=== PATIENT | female | born 1955 | race Caucasian/White ===

== ENCOUNTER 2021-03-31 10:12 | Outpatient (CLI) | payer MEDICARE, SELFPAY ==
--- NOTE | ~2021-03-31 | MM_ITS ---
EXAMINATION: MM screening allan BI w nima HISTORY: Screening mammogram TECHNIQUE: Craniocaudal and mediolateral oblique 3-D tomosynthesis images were obtained and synthetic 2-D images were generated. CAD analysis was submitted and interpreted. COMPARISON: 12/28/2018 diagnostic right mammogram and limited right breast ultrasound 09/15/2018, 06/06/2017 bilateral digital screening mammogram examinations BREAST PARENCHYMAL COMPOSITION: There are scattered areas of fibroglandular density. FINDINGS: There are bilateral benign-appearing intramammary lymph nodes. Occasional benign calcifications are noted. There is no evidence of suspicious mass, calcification, o r architectural distortion to suggest malignancy in either breast. There has been no suspicious inter francisco change. IMPRESSION: 1. No mammographic evidence of malignancy. 2. Recommend routine screening mammography in one year. BI-RADS Category 2: Benign finding(s). Reviewed, dictated and finalized at location A.
== END 2021-03-31 10:13 | disposition home or self-care (01) ==
LOC: ANHIMG 10:17
PROVIDERS: PCP Family Medicine; Visit Provider Nurse Practitioner Obstetrics & Gynecology
DX: Z12.31 Encounter for screening mammogram for malignant neoplasm of breast (principal)
CPT/HCPCS: 77063; 77067

== ENCOUNTER 2023-02-28 13:40 | Outpatient (CLI) | payer MEDICARE, SELFPAY ==
--- NOTE | ~2023-02-28 | MM_ITS ---
EXAMINATION: MM screening allan BI w nima HISTORY: Screening mammogram TECHNIQUE: Craniocaudal and mediolateral oblique 3-D tomosynthesis images were obtained and synthetic 2-D images were generated. CAD analysis was submitted and interpreted. COMPARISON: 03/31/2021 bilateral screening mammogram 12/28/2018 diagnostic right mammogram and limited right breast ultrasound, reported negative 4. 18 bilateral screening mammogram BREAST PARENCHYMAL COMPOSITION: There are scattered areas of fibroglandular density. FINDINGS: Bilateral axillary tail small probable lymph nodes. There is no evidence of suspicious mass , calcification, or architectural distortion to suggest malignancy in either breast. There has been n o suspicious interval change. IMPRESSION: 1. No mammographic evidence of malignancy. 2. Recommend routine screening mammography in one year. BI-RADS Category 2: Benign finding(s). Reviewed, dictated and finalized at location A.
== END 2023-02-28 13:41 | disposition home or self-care (01) ==
LOC: ANHIMG 13:45
PROVIDERS: PCP Family Medicine; Visit Provider Nurse Practitioner Obstetrics & Gynecology
DX: Z12.31 Encounter for screening mammogram for malignant neoplasm of breast (principal)
CPT/HCPCS: 77063; 77067

== ENCOUNTER 2024-08-27 14:49 | Outpatient (CLI) | payer MEDICARE, SELFPAY ==
--- NOTE | ~2024-08-27 | MM_ITS ---
EXAMINATION: MM screening allan BI w nima HISTORY: Screening TECHNIQUE: Craniocaudal and mediolateral oblique 3-D tomosynthesis images were obtained and synthetic 2-D images were generated. CAD analysis was submitted and interpreted. COMPARISON: Comparison to multiple prior studies sequentially, with oldest reviewed study dated 05/17. BREAST PARENCHYMAL COMPOSITION: Not dense: There are scattered areas of fibroglandular density. FINDINGS: There is no evidence of suspicious mass, calcification, or architectural distortion to sugg est malignancy in either breast. There has been no suspicious interval change. IMPRESSION: 1. No mammographic evidence of malignancy. 2. Recommend routine screening mammography in one year. BI-RADS Category 1: Negative Reviewed, dictated and finalized at location []
--- OUTSIDE RECORDS SUMMARY | 2024-08-27 14:54 | XMS_ITS | Encounter Summary ---
Author Organization [facility] Facility Care Team Providers Care Cook Frozen Dessert Name Role Phone Zhen Galan MD Primary Care Provider [phone] Tadeo Hansen MD Unavailable [phone] Zhen Galan MD Primary Care Provider [phone] Asha Russo MD Unavailable Encounter Details Date Type Department Care Team (Latest Contact Info) Description 11/17/2015 Orders Only MMG CLINCONV ProviderAmina MD [address] [place] [address] Social History Tobacco Use Types Packs/Day Years Used Date Smoking Tobacco: Never Assessed Comments Unknown Sex and Gender Information Value Date Recorded Sex Assigned at Not on file 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 us Historical Provider Final Res ult documented in this encounter Visit Diagnoses Not on filedocumented in this encounter Additional Health Concerns Infection Onset Date Last Indicated Resolved Time Exposure, COVID-19 Comment:Added automatically based on COVID19 lab answers indicating exposure risk 01/17/2022 01/17/2022 01/18/2022 10:09 AM CDT COVID: Suspected 01/17/2022 01/17/2022 01/18/2022 3:05 AM CDT COVID: Suspected 01/17/2022 01/17/2022 01/18/2022 10:09 AM CDT COVID19 01/17/2022 01/17/2022 01/27/2022 3:07 AM CDT COVID: Recovered Comment:Added based on recent COVID infection. 01/27/2022 02/20/2022 05/27/2022 3:[address] documented as of this encounter Care Teams Cook Frozen Dessert Relationship Specialty Start Date End Date Zhen Galan MD PCP - General 11/19/16 03/11/22 Zhen Galan MD PCP - General Family Medicine 03/12/22 Tadeo Hansen MD Consulting Physician Plastic Surgery 10/30/21 Asha Russo MD [address] [facility] [address] Consulting Physician Pain Management 11/05/22 documented as of this encounter
--- OUTSIDE RECORDS SUMMARY | 2024-08-27 14:54 | XMS_ITS | Encounter Summary ---
Author Organization [facility] Address [address] [place] [address] Care Team Providers Care Automotive Accessory Installer Name Role Phone Zhen Galan MD Primary Care Provider [phone] Bhupendra Combs MD Unavailable Encounter Details Date Type Department Care Team (Late st Contact Info) Description 09/01/2018 Abstract [facility] at [facility], [address] [address] Tatyana Lara MA Social History Tobacco Use Types Packs/Day Years Used Date Smoking Tobacco: Former Smokeless Tobacco: Never Alcohol Use Standard Drinks/Week Comments No 0 (1 standard drink = 0.6 oz pur e alcohol) AUDIT-C Answer Date Recorded Frequency of Alcohol Consumption Never 08/31/2018 Average Number of Drinks Not on file 019 Frequency of Binge Drinking Not on file 08/14 Comments Unknown Sex and Gender Information Value Date Recorded Sex Assigned at Female 09/25/2018 9:29 AM CDT Legal Sex Female 8:34 PM CDT Gender Identity Female 09/25/2018 9:29 AM CDT Sexual Orientation Straight 09/25/2018 9: 29 AM CDT Occupation Industry Job Start Date Job End Date Not on file Not on file Not on file Not on file documented as of this encounter Plan of Treatment Not on file documented as of this encounter Procedures Procedure Name Priority Date/Time Associated Diagnosis Comments PROTIME (OUTSIDE LAB) Routine 09/22/2018 PROTIME (OUTSIDE LAB) Routine 09/22/2018 CBC (OUTSIDE LAB) Routine 09/22/2018 BASIC METABOLIC PANEL Routine 09/22/2018 LIPID PANEL Routine 09/22/2018 CREATININE Routine 09/17/2018 BNP Routine 08/26/2018 CBC (OUTSIDE LAB) Routine 07/29/2018 COMPREHENSIVE METABOLIC PANEL Routine 07/29/2018 documented in this encounter Results * PROTIME (OUTSIDE LAB) (09/22/2018) 09/22/2018 us Doc [facility] Abstract LAB-OUTSIDE/ABSTRACTED Final Result * CBC (OUTSIDE LAB) (09/22/2018) WBC 5.2 HGB 12.8 HCT 39.3 PLT 221 09/22/2018 us Doc [facility] Abstract LAB-OUTSIDE/ABSTRACTED Edite d Result - Final * BASIC METABOLIC PANEL (09/22/2018) SODIUM S/P/B 132 POTASSIUM S/P/B 4.6 CO2 29 CHLORIDE S/P/B 98 GLUCOSE 106 mg/dL CALCIUM S/P/B 9.4 BUN 7 CREATININE S/P/B 0.92 0.5 - 1.0 EGFR AFR. AMER. 76 <=90 EGFR NON-AFR. AMER. 65 <=90 09/22/2018 us Doc [facility] Abstract LABORATORY Edited Resul t - Final * LIPID PANEL (09/22/2018) CHOLESTEROL 209 HDL 54 TRIGLYCERIDES 118 NON HDL CHOLESTEROL 155 LDL (CALCULATED) 132 09/22/2018 us Doc [facility] Abstract LABORATORY Edited Resul t - Final * PROTIME (OUTSIDE LAB) (09/22/2018) Pathologist [facility] PROTIME 9.8 INR 1.0 09/22/2018 us Doc [facility] Abstract LAB-OUTSIDE/ABSTRACTED Final Result * CREATININE (09/17/2018) Pathologist [facility] CREATININE S/P/B 0.80 0.5 - 1.0 EGFR NON-AFR. AMER. 77 <=90 EGFR AFR. AMER. 90 <=90 09/17/2018 us Doc [facility] Abstract LABORATORY Final Result * BNP (08/26/2018) Pathologist [facility] B TYPE NATRIURETIC PEPTIDE 35 08/26/2018 us Doc [facility] Abstract LABORATORY Final Result * CBC (OUTSIDE LAB) (07/29/2018) Pathologist [facility] WBC 5.3 HGB 13.2 HCT 40.7 PLT 238 07/29/2018 us Doc [facility] Abstract LAB-OUTSIDE/ABSTRACTED Edite d Result - Final * COMPREHENSIVE METABOLIC PANEL (07/29/2018) Pathologist [facility] SODIUM S/P/B 133 POTASSIUM S/P/B 4.6 CO2 31 CHLORIDE S/P/B 98 GLUCOSE 100 mg/dL CALCIUM S/P/B 9.7 BUN 7 CREATININE S/P/B 0.81 0.5 - 1.0 EGFR AFR. AMER. 88 <=90 EGFR NON-AFR. AMER. 76 <=90 ALKALINE PHOSPHATASE S/P/B 122 ALT 13 AST 21 BILIRUBIN TOTAL S/P/B 0.9 ALBUMIN S/P/B 4.1 3.5 - 5.0 TOTAL PROTEIN S/P/B 7.0 GLOBULIN 2.9 07/29/2018 us Doc [facility] Abstract LABORATORY Edited Resul t - Final documented in this encounter Visit Diagnoses Not on filedocumented in this encounter Care Teams Automotive Accessory Installer Relationship Specialty Start Date End Date Zhen Galan MD PCP - General FAMILY PRACTICE 08/17/18 Bhupendra Combs MD [facility]. [facility] [address] [place] [address] [place] Clinical Educator INTERVENTIONAL CARDIOLOGY 08/20/18 documented as of this encounter
--- OUTSIDE RECORDS SUMMARY | 2024-08-27 14:54 | XMS_ITS | Encounter Summary ---
Author Organization [facility] Facility Care Team Providers Care Passenger Solicitor Name Role Phone Zhen Galan MD Primary Care Provider [phone] Tadeo Hansen MD Unavailable [phone] Zhen Galan MD Primary Care Provider [phone] Asha Russo MD Unavailable Encounter Details Date Type Department Care Team (Latest Contact Info) Description 10/31/2015 Orders Only MMG CLINCONV ProviderAmina MD [address] [place] [address] Social History Tobacco Use Types Packs/Day Years Used Date Smoking Tobacco: Never Assessed Comments Unknown Sex and Gender Information Value Date Recorded Sex Assigned at Not on file 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 Historical Provider [facility] HELADIO BRISENO Final Result documented in this encounter Visit Diagnoses Not [...] documented as of this encounter Care Teams Passenger Solicitor Relationship Specialty Start Date End Date Zhen Galan MD PCP - General 11/19/16 03/11/22 Zhen Galan MD PCP - General Family Medicine 03/12/22 Tadeo Hansen MD Consulting Physician Plastic Surgery 10/30/21 Asha Russo MD [address] [facility] [address] Consulting Physician Pain Management 11/05/22 documented as of this encounter
--- OUTSIDE RECORDS SUMMARY | 2024-08-27 14:55 | XMS_ITS | Encounter Summary ---
Author Organization [facility] Facility Care Team Providers Care Assistant Health Educator Name Role Phone Zhen Galan MD Primary Care Provider [phone] Tadeo Hansen MD Unavailable [phone] Zhen Galan MD Primary Care Provider [phone] Asha Russo MD Unavailable Encounter Details Date Type Department Care Team (Latest Contact Info) Description 03/07/2016 Orders Only MMG CLINCONV ProviderAmina MD [address] [place] [address] Social History Tobacco Use Types Packs/Day Years Used Date Smoking Tobacco: Never Assessed Comments Unknown Sex and Gender Information Value Date Recorded Sex Assigned at Not on file 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 Historical Provider Final Res ult * COLONOSCOPY - SCAN (03/07/2016 12:00 AM CDT) Narrative 03/07/2016 12:00 AM CDT Ordered by an unspecified [...] documented as of this encounter Care Teams Assistant Health Educator Relationship Specialty Start Date End Date Zhen Galan MD PCP - General 11/19/16 03/11/22 Zhen Galan MD PCP - General Family Medicine 03/12/22 Tadeo Hansen MD Consulting Physician Plastic Surgery 10/30/21 Asha Russo MD [address] [facility] [address] Consulting Physician Pain Management 11/05/22 documented as of this encounter
--- OUTSIDE RECORDS SUMMARY | 2024-08-27 14:55 | XMS_ITS | Encounter Summary ---
Author Organization [facility] Facility Care Team Providers Care Electronics Supervisor Name Role Phone Zhen Galan MD Primary Care Provider [phone] Tadeo Hansen MD Unavailable [phone] Zhen Galan MD Primary Care Provider [phone] Asha Russo MD Unavailable Encounter Details Date Type Department Care Team (Latest Contact Info) Description 09/01/2018 Orders Only MMG CLINCONV ProviderAmina MD [address] [place] [address] Social History Tobacco Use Types Packs/Day Years Used Date Smoking Tobacco: Every Day Comments Unknown Sex and Gender Information Value Date Recorded Sex Assigned at Not on file Legal Sex Female 3:[address] TH[address] ORDER TAKER Gender Identity Not on file Sexual Orientation Not on file documented as of this encounter Plan of Treatment Not on file documented as of this encounter Procedures Procedure Name Priority Date/Time Associated Diagnosis Comments CARDIOLOGY REPORT 09/08/2018 12: 00 AM CDT documented in this encounter Results * CARDIOLOGY REPORT (09/08/2018 12:00 AM CDT) Anatomical Region Laterality Modality Other Narrative 09/08/2018 12:00 AM CDT Ordered by an unspecified [...] documented as of this encounter Care Teams Electronics Supervisor Relationship Specialty Start Date End Date Zhen Galan MD PCP - General 11/19/16 03/11/22 Zhen Galan MD PCP - General Family Medicine 03/12/22 Tadeo Hansen MD Consulting Physician Plastic Surgery 10/30/21 Asha Russo MD [address] [facility] [address] Consulting Physician Pain Management 11/05/22 documented as of this encounter
--- OUTSIDE RECORDS SUMMARY | 2024-08-27 14:55 | XMS_ITS | Encounter Summary ---
Author Organization [facility] Facility Care Team Providers Care Stone Fabricator Name Role Phone Zhen Galan MD Primary Care Provider [phone] Tadeo Hansen MD Unavailable [phone] Zhen Galan MD Primary Care Provider [phone] Asha Russo MD Unavailable Encounter Details Date Type Department Care Team (Latest Contact Info) Description 11/12/2016 Orders Only MMG CLINCONV ProviderAmina MD [address] [place] [address] Social History Tobacco Use Types Packs/Day Years Used Date Smoking Tobacco: Never Assessed Comments Unknown Sex and Gender Information Value Date Recorded Sex Assigned at Not on file 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 Gender Identity Not on file Sexual Orientation Not on file documented as of this encounter Plan of Treatment Not on file documented as of this encounter Procedures Procedure Name Priority Date/Time Associated Diagnosis Comments SCAN - LABS 12/02/2016 12:00 AM CDT documented in this encounter Results * SCAN - LABS (12/02/2016 12:00 AM CDT) Narrative 12/02/2016 12:00 AM CDT Ordered by an unspecified [...] documented as of this encounter Care Teams Stone Fabricator Relationship Specialty Start Date End Date Zhen Galan MD PCP - General 11/19/16 03/11/22 Zhen Galan MD PCP - General Family Medicine 03/12/22 Tadeo Hansen MD Consulting Physician Plastic Surgery 10/30/21 Asha Russo MD [address] [facility] [address] Consulting Physician Pain Management 11/05/22 documented as of this encounter
--- OUTSIDE RECORDS SUMMARY | 2024-08-27 14:55 | XMS_ITS | Encounter Summary ---
Author Organization [facility] Facility Care Team Providers Care Shearing Machine Operator Name Role Phone Zhen Galan MD Primary Care Provider [phone] Tadeo Hansen MD Unavailable [phone] Zhen Galan MD Primary Care Provider [phone] Asha Russo MD Unavailable Encounter Details Date Type Department Care Team (Latest Contact Info) Description 02/25/2018 Orders Only MMG CLINCONV ProviderAmina MD [address] [place] [address] Social History Tobacco Use Types Packs/Day Years Used Date Smoking Tobacco: Every Day Comments Unknown Sex and Gender Information Value Date Recorded Sex Assigned at Not on file 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 Gender Identity Not on file Sexual Orientation Not on file documented as of this encounter Plan of Treatment Not on file documented as of this encounter Procedures Procedure Name Priority Date/Time Associated Diagnosis Comments PROCEDURE - RESULT 04/01/2018 12 :00 AM CDT documented in this encounter Results * PROCEDURE - RESULT (04/01/2018 12:00 AM CDT) Narrative 04/01/2018 12:00 AM CDT Ordered by an unspecified [...] documented as of this encounter Care Teams Shearing Machine Operator Relationship Specialty Start Date End Date Zhen Galan MD PCP - General 11/19/16 03/11/22 Zhen Galan MD PCP - General Family Medicine 03/12/22 Tadeo Hansen MD Consulting Physician Plastic Surgery 10/30/21 Asha Russo MD [address] [facility] [address] Consulting Physician Pain Management 11/05/22 documented as of this encounter
--- OUTSIDE RECORDS SUMMARY | 2024-08-27 14:55 | XMS_ITS | Referral Summary ---
Author Organization [facility] Address [address] [place] [address] Care Team Providers Care Escalator Installer Name Role Phone Tadeo Hansen MD Unavailable [phone] Zhen Galan MD Primary Care Provider [phone] Asha Russo MD Unavailable Allergies Active Allergy Reactions Criticality Noted Date Comments Amlodipine Shortness of breath High 09/25/2018 Neomycin Sulfate Other (See comments) Low 9 Was an eye ointment - caused burning in eye Ketorolac Dizziness,Nausea only,Sweating Low 05/01/2022 Pt states she broke out into a cold sweat, became dizzy and nauseated after injection Medications geriatric multivitamin-mi n tablet daily Active olmesartan (BENICAR) 20 mg tablet Take 1 tablet (20 mg total) by mouth daily 90 tablet 4 Active propranoloL (INDERAL) 20 mg tablet Take 1 tablet by mouth twice daily 180 tablet 1 4 Active omeprazole (PriLOSEC) 20 mg capsule Take 1 capsule by mouth once daily 90 capsule 4 Active ALPRAZolam (XANAX) 0.5 mg tabletIndicatio ns:Anxiety Take 1 tablet (0.5 mg total) by mouth 2 (two) times a day as needed for anxiety 60 tablet 5 Active ALPRAZolam (XANAX) 0.5 mg tabletIndicatio ns:Anxiety Take 1 tablet by mouth twice daily as needed for anxiety 60 tablet 5 08/03/19 25 Discontinu ed(Reorder ) Active Problems Problem Noted Date Diagnosed Date Carotid stenosis, bilateral 05/16/2022 Normal coronary arteries 05/16/2022 Overview (05/16/2022): on angiogram in 2019 Closed compression fracture of L3 lumbar vertebra, initial encounter 05/16/2022 Mucous cyst of tonsil 03/22/2022 Mass of skin of back 10/15/2021 Overview (10/15/2021): Added automatically from request for surgery [id number] Family history of breast cancer 05/01/2021 Breast mass 05/01/2021 Medicare annual wellness visit, subsequent 03/29 SIADH (syndrome of inappropriate ADH production) 12/04/2018 Tremor, essential 09/26/2016 Overview (10/07/2018): sees Elvia Essential (primary) hypertension 12/25/2015 IBS (irritable bowel syndrome) 12/25/2015 DENISE (generalized anxiety disorder) 11/07/2015 Resolved Problems Problem Noted Date Diagnosed Date Resolved Date Mastodynia 05/01/2021 01/29/2023 Hypokalemia 12/04/2018 01/29/2023 Hyponatremia 12/11/2016 01/29/2023 Immunizations Immunization Administration Dates Next Due Influenza, Quadrivalent, Spl it, Intramuscular 03/28/2016 Influenza, Unspecified 07/23/2023(Deferr ed: Patient Refused),03/16/2022,04/10/2021(Deferre d: Patient Refused) Pneumococcal Conjugate PCV 13 10/12/2018 Pneumococcal Conjugate Pcv20 07/23/2023(Deferred : Patient Refused) Social History Tobacco Use Types Packs/Day Years Used Date Smoking Tobacco: Former Cigarettes Q uit: 2017 Smokeless Tobacco: Former Tobacco Cessation:Counseling Given: Not Answered Alcohol Use Standard Drinks/Week Comments Not Currently 0 (1 standard drink = 0.6 oz pur e alcohol) AUDIT-C Answer Date Recorded Q1: How often do you have a drink containing alcohol? Never 08/22/2022 Q2: How many drinks containi ng alcohol do you have on a typical day when you are drinking? Patient does not drink Q3: How often do you have si x or more drinks on one occasion? 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 Gender Identity Not on file Sexual Orientation Not on file Last Filed Vital Signs Vital Sign Reading Time Taken Comments Blood Pressure 118/83 09/10/2023 2:35 PM CDT pt reported Pulse 57 07/23/2023 1:30 PM PROFESSIONAL WRESTLER Temperature 36.1 C (97 F) 07/23/2023 1:30 PM PROFESSIONAL WRESTLER Respiratory Rate 18 05/13/2023 1:23 PM PROFESSIONAL WRESTLER Oxygen Saturation 99% 07/23/2023 1:3 0 PM PROFESSIONAL WRESTLER Inhaled Oxygen Concentration - - Weight 59.6 kg (131 lb 6.4 oz) 07/23/19 24 1:30 PM PROFESSIONAL WRESTLER Height 157.5 cm (5' 2 ) 07/23/2023 1:30 PM PROFESSIONAL WRESTLER Body Mass Index 24.03 07/23/2023 1:30 PM PROFESSIONAL WRESTLER Plan of Treatment Not on file Medical Devices Implanted Type Area Commissioner Public Works Device Identifier Shelf Expiration Date Model / Serial / Lot [employer] Avamax Od13 Ga L10 Mm Balloon Tray Bone Cement [id number] - [id number] - [id number] Implanted:Qty: 1 on 05/24/2022 by Asha Russo MD at [facility] [place] Bone Cement N/A: Back [employer] 07/16/2023 [id number] / [id number] / [id number] Description:LAUREN VERTAPLE X HV HIGH VISCOSITY RADIOPAQUE BONE CEMENT [employer] Vertaplex Hv Autoplex Without Needle Delivery System Kit Bone [id number] - [id number] - [id number] Implanted:Qty: 1 on 05/24/2022 at [facility] [place] Other - see comments Back [employer] 02/14/2025 [id number] / [id number] / [id number] Description:LAUREN AUTOPLEX SYSTEM WITHOUT NEEDLES Procedures Procedure Name Priority Date/Time Associated Diagnosis Comments SCREENING MAMMOGRAM BILATERAL W EKO Schedule Routine, Read Routine (OP Routine) 02/28/2023 Encounter for screening mammogram for malignant neoplasm of breast from Last 3 Months or Most Recently Relevant to Health Maintenance Results * Screening Mammogram Bilateral W Keo (02/28/2023) Anatomical Region Laterality Modality Breast Bilateral Mammography Zhen Galan MD IMG MAMMO PROCEDURES Final Re sult from Last 3 Months or Most Recently Relevant to Health Maintenance Insurance MEDICARE [facility] [employer]ICARE [facility] Member Subscriber Plan / Payer ( fective 2018-Present) Name:Mariposa Degroot Relation to Subscriber:Self Name:Mariposa Degroot Payer ID:[id number] Group ID:Not on file Type:[employer] Address: [facility] [id number] [id number] [place] [address] MEDICARE [facility] MEDICARE [facility] Care Teams Escalator Installer Relationship Specialty Start Date End Date Zhen Galan MD PCP - General Family Medicine 03/12/22 Tadeo Hansen MD Consulting Physician Plastic Surgery 10/30/21 Asha Russo MD [address] [facility], [address] [address] Consulting Physician Pain Management 11/05/22
--- OUTSIDE RECORDS SUMMARY | 2024-08-27 14:55 | XMS_ITS | Clinical Summary ---
Author Organization [facility] Address [address] [place] [address] Care Team Providers Care New Business Clerk Name Role Phone Zhen Galan MD Primary Care Provider [phone] Bhupendra Combs MD Unavailable Allergies Active Allergy Reactions Criticality Noted Date Comments Amlodipine Shortness of Breath High 09/25/2018 Medications ALPRAZolam 0.5 MG tablet Take 1 tablet by mouth nightly at bedtime. 1 08/16/2018 Active omeprazole 20 MG capsule Take 1 capsule by mouth daily. 07/20/2018 Active sucralfate 1 G tablet TAKE 1 TABLET BY MOUTH THREE TIMES DAILY FOR 30 DAYS 1 11/17/2018 Active hydrochlorothia zide 25 MG tablet 3 10/12/2018 Active metoprolol succinate ER 25 MG 24 hr tablet 0 09/13/2018 Act yasemin ondansetron 4 MG tablet TAKE 1 TABLET BY MOUTH EVERY 6 HOURS NEEDED FOR 30 DAYS 0 11/06/2018 Active propranolol 20 MG tablet TAKE 1 TABLET BY MOUTH TWICE DAILY 180 tablet 1 09/16/2019 Active Active Problems Problem Noted Date Diagnosed Date Essential hypertension Normal coronary arteries Overview (11/02/2018): on angiogram in 2019 Carotid stenosis, bilateral Resolved Problems Problem Noted Date Diagnosed Date Resolved Date Chest tightness 11/02/2018 SOB (shortness of breath) Carotid stenosis 11/02/2018 Family History Medical History Relation Comments Cancer Father Ulcer Mother Heart Disease Paternal Grandfather Cancer Sister 1 Cancer Sister 2 Cancer Sister 3 Relation Status Comments Brother 1 Alive Brother 2 Alive Father (Age 64) Maternal Grandfather Maternal Grandmother Mother (Age 52) Paternal Grandfather Paternal Grandmother Sister 1 (Age 40's) Sister 2 (Age 36) Sister 3 (Age 56) Sister 4 Alive Social History Tobacco Use Types Packs/Day Years Used Date Smoking Tobacco: Former Cigarettes Q uit: 2017 Smokeless Tobacco: Never Alcohol Use Standard Drinks/Week Comments No 0 (1 standard drink = 0.6 oz pur e alcohol) AUDIT-C Answer Date Recorded Frequency of Alcohol Consumption Never 08/31/2018 Average Number of Drinks Not on file 019 Frequency of Binge Drinking Not on file 08/14 Comments No Sex and Gender Information Value [...] file Not on file Not on file Last Filed Vital Signs Vital Sign Reading Time Taken Comments Blood Pressure 135/93 11/30/2018 6:27 PM CDT Pulse 68 11/30/2018 6:27 PM CDT Temperature 36.6 C (97.8 F) 11/30/2018 3:13 PM CDT Respiratory Rate 16 11/30/2018 6:27 PM CDT Oxygen Saturation 95% 11/30/2018 6:27 PM CDT Inhaled Oxygen Concentration - - Weight 68.8 kg (151 lb 9.6 oz) 11/30/2018 11:02 AM CDT Height 154.9 cm (5' 1 ) 11/30/2018 11:02 AM CDT Body Mass Index 28.64 11/30/2018 11:02 AM CDT Plan of Treatment Health Maintenance Due Date Last Done Comments Colorectal Cancer Screening Colonoscopy (10 Years) 1953 Hepatitis C 1971 DTaP, Tdap and Td Vaccines ( 1 - Tdap) 1972 Mammogram Screening 1993 Zoster Vaccines (1 of 2) 2003 Annual Medicare Wellness Visit 2018 Dexa Scan (General) 2018 Pneumococcal Vaccine: 65+ Ye ars (2 of 2 - PPSV23 or PCV20) 10/13/2019 10/12/2018 COVID-19 Vaccine ( - 2023-2 5 season) 2024 Influenza Adult (#1) 2024 03/28/2016 RSV Immunization or 60+ Years (1 - 1-dose 75+ series) 2028 Meningococcal B Vaccine Aged Out No l onger eligible based on patient's age to complete this topic Meningococcal Vaccine Aged Out No jennifer jameson eligible based on patient's age to complete this topic RSV Immunizations Under 20 Months Aged Out No longer eligible based on patient's age to complete this topic Insurance MEDICARE [facility] MEDICARE AARP Care Teams New Business Clerk Relationship Specialty Start Date End Date Zhen Galan MD PCP - General FAMILY PRACTICE 08/17/18 Bhupendra Combs MD [facility] [address] [place] [address] Bhavya Copy Cutter INTERVENTIONAL CARDIOLOGY 08/20/18
--- OUTSIDE RECORDS SUMMARY | 2024-08-27 14:55 | XMS_ITS | Clinical Summary ---
Author Organization [facility] Address [address] [place] [address] Care Team Providers Care Load Out Supervisor Name Role Phone Tadeo Hansen MD Unavailable [phone] Zhen Galan MD Primary Care Provider [phone] Asha Russo MD Unavailable Allergies Active Allergy [...] (10/15/2021): Added automatically from request for surgery [id number] Family history of breast cancer 05/01/2021 Breast [...] Pneumococcal Conjugate Pcv20 07/23/2023(Deferred : Patient Refused) Surgical History Surgery Date Site/Laterality Comments BUNIONECTOMY APPENDECTOMY PARTIAL HYSTERECTOMY ANKLE SURGERY Left VERTEBROPLASTY 05/24/2022 N/A L3 FLUORO GUIDED ASPIRATION TMJ LEFT 11/18/2022 Left FLUORO GUIDED ASPIRATION TMJ LEFT 03/12/2023 Left Medical History Medical History Date Comments Hyponatremia Sleep apnea Depression Anxiety Hyperlipidemia Migraines GERD (gastroesophageal reflux disease) Osteoarthritis Allergic rhinitis Family History Medical History Relation Name Comments Diabetes Brother Cancer Father Breast cancer Mother Ovarian cancer Mother perforated ulcer Mother Diabetes Paternal Grandmother Cancer Sister Relation Name Status Comments Brother Father Mother Paternal Grandmother Sister Social History Tobacco Use Types Packs/Day Years [...] on file Legal 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 Gender Identity Not on file Sexual Orientation Not on file Obstetrics History Last Filed Vital Signs Vital Sign Reading Time Taken Comments Blood Pressure 118/83 09/10/2023 2:35 PM CDT pt reported Pulse 57 07/23/2023 1:30 PM [employer] Temperature 36.1 C (97 F) 07/23/2023 1:30 PM [employer] Respiratory Rate 18 05/13/2023 1:23 PM [employer] Oxygen Saturation 99% 07/23/2023 1:3 0 PM [employer] Inhaled Oxygen Concentration - - Weight 59.6 kg (131 lb 6.4 oz) 07/23/19 24 1:30 PM [employer] Height 157.5 cm (5' 2 ) 07/23/2023 1:30 PM [employer] Body Mass Index 24.03 07/23/2023 1:30 PM [employer] Plan of Treatment Health Maintenance Due Date Last Done Comments Colon Cancer Screening-Colonoscopy 1955 Hepatitis C Screening 1955 Osteoporosis Screening-Bone Density Scan 1953 DTaP/Tdap/Td Vaccine (1 - Tdap) 1964 Hepatitis B Screening 1971 Zoster Vaccine (1 of 2) 2003 Pneumococcal vaccine 65+ (2 of 2 - PPSV23) 10/13/2019 10/12/2018 Covid-19 Vaccine (4 - 2023-2 5 season) 2024 09/26/2021, 01/04/2021, 12/10/2020 Influenza Vaccine (#1) 2024 03/16/2022, 2015 Breast Cancer Screening-Mammogram 02/29/2024 023, 05/18/2016 Depression Screening 07/23/2024 07/23/2023, 01/29/2023, 05/23/2022, Additional history exists Fall Risk Assessment 07/23/2024 07/23/2023, 01/29/2023, 05/23/2022, Additional history exists Well Visit 65+ 07/23/2024 07/23/2023, 01/2022, 04/10/2021, Additional history exists Medical Devices Implanted Type Area Licensed Sales Assistant Device Identifier Shelf Expiration Date Model / Serial / Lot [employer] Avamax Od13 Ga L10 Mm Balloon Tray Bone Cement [id number] - [id number] - [id number] Implanted:Qty: 1 on 05/24/2022 by Asha Russo MD at [facility] [place] Bone [employer]ement N/A: Back [employer] 07/16/2023 [id number] / [id number] / [id number] Description:LUNA VERTAPLE X HV HIGH VISCOSITY RADIOPAQUE BONE CEMENT [employer] Vertaplex Hv Autoplex Without Needle Delivery System Kit Bone [id number] - [id number] - [id number] Implanted:Qty: 1 on 05/24/2022 at [facility] [place] Other - see comments Back [employer] 02/14/2025 [id number] / [id number] / [id number] Description:LUNA AUTOPLEX SYSTEM WITHOUT NEEDLES Procedures Procedure Name Priority Date/Time Associated Diagnosis Comments SCREENING MAMMOGRAM BILATERAL W KEO Schedule Routine, Read Routine (OP Routine) 02/28/2023 [...] Recently Relevant to Health Maintenance Insurance MEDICARE [facility] MEDICARE [facility] MEDICARE [facility] [place] [address] MEDICARE [facility] Care Teams Load Out Supervisor Relationship Specialty Start Date End Date Zhen Galan MD PCP - General Family Medicine 03/12/22 Tadeo Hansen MD Consulting Physician Plastic Surgery 10/30/21 Asha Russo MD [address] [facility], [address] [address] Consulting Physician Pain Management 11/05/22
--- OUTSIDE RECORDS SUMMARY | 2024-08-27 14:55 | XMS_ITS | Encounter Summary ---
Author Organization [facility] Address [address] [place] [address] Care Team Providers Care Metal Drilling Machine Operator Name Role Phone Tadeo Hansen MD Unavailable [phone] Zhen Galan MD Primary Care Provider [phone] Asha Russo MD Unavailable Encounter Details Date Type Department Care Team (Late st Contact Info) Description 08/22/2022 Telephone [facility] Pain [facility] [address] [place] [id number] Estela Upton, RN Social History Tobacco Use Types Packs/Day Years Used Date Smoking Tobacco: Former Cigarettes Q uit: 2017 Smokeless Tobacco: Former Alcohol Use Standard Drinks/Week Comments Not Currently [...] points, staff should administer the PHQ-9) 0 05/23/2022 Comments No Sex and Gender Information Value Date Recorded Sex Assigned at Not on file 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 Never 08/22/2022 8:20 AM Dae Castro RN Q2: How many drinks containing alcohol do you have on a typical day when you are drinking? Patient does not drink 08/22/2022 8:20 AM Dae Castro RN Q3: How often do you have six or more drinks on one occasion? Never 08/22/2022 8:20 AM Dae Castro RN documented as of this encounter Plan of Treatment Not on file documented as of this encounter Visit Diagnoses Not on filedocumented in this encounter Care Teams Metal Drilling Machine Operator Relationship Specialty Start Date End Date Zhen Galan MD PCP - General Family Medicine 03/12/22 Tadeo Hansen MD Consulting Physician Plastic Surgery 10/30/21 Asha Russo MD [address] [facility] [address] Consulting Physician Pain Management 11/05/22 documented as of this encounter
--- OUTSIDE RECORDS SUMMARY | 2024-08-27 14:55 | XMS_ITS | Data Portability ---
Author Organization [facility] [place] Address [address] [place] [address] Care Team Providers Care Webbing Tacker Name Role Phone VALENTE VAUGHN Primary Care Provider [phone] Assessment No assessment recorded. Plan of Treatment Reminders Order Date Submit Date Provider Last Modified By Organization Details Last Modified Time Details Appointments None recorded. Lab None recorded. Referral breast surgery referral [address], [address] [place] [address], [id number], 17:25:25 Procedures None recorded. Surgeries None recorded. Imaging None recorded. Medication Orders None recorded. Patient TargetsNo targets recorded. Patient InstructionsNo instructions recorded. Reason for Referral Breast Surgery Referral for Mastodynia of bilateral breasts Referring Physician: Nissa Solitario, [employer], Encounter Date: 04/12/2021 Results Created Date Observation Date Name Description Value Unit Range Abnormal Flag Note LastModifiedBy Organization Detail LastModifiedTime 04/05/20 21 MAMMO , scree abisai, bilat eral No observ ation record ed. layran Not Available 2020 10:52:28 Result Notes None recorded. Problems Name Problem SNOMED Code Status Onset Date Resolution Date Notes Provider Name and Address Organization Details Recorded Time Acute vulvitis 76640615 Completed 201804/10/2021 Vulvitis; Recorded Elsewhere : No Locati on: [facility] So urce: EHR Chron ic: N Practic e ID: 0001 Bill able Time: 01:00:00 PM [facility] Concept Completed 201504/10/2021 Well woman check w/o abnormal finding;R ecorded Elsewhere : No Locati on: [facility] So urce: EHR Chron ic: N Practic e ID: 0001 Bill able Time: 10:30:00 AM Estela Padgett [facility] 13:51:22 Screenin g for malignan t neoplasm of cervix Completed 201304/10/2021 Screening for malignant neoplasms of the cervix;Re corded Elsewhere : No Locati on: [facility] So urce: EHR Chron ic: N Practic e ID: 0001 Bill able Time: 12:00:00 PM Estela Padgett [facility] 13:51:17 Radiolog ic finding [id number] Completed 201404/10/2021 Oth abn and inconclus yasemin findings on dx imaging of breast;Re corded Elsewhere : No Locati on: [facility] So urce: EHR Chron ic: N Practic e ID: 0001 Bill able Time: 04:29:17 PM Estela Padgett [facility] 13:51:11 Screenin g for malignan t neoplasm of rectum Completed 201504/10/2021 Encounter for screening for malignant neoplasm of rectum;Re corded Elsewhere : No Locati on: [facility] So urce: EHR Chron ic: N Practic e ID: 0001 Bill able Time: 10:30:00 AM Estela Padgett [facility] 13:51:19 Disorder of breast 30624234 Completed 201804/10/2021 Disorder of breast, unspecifi ed;Record ed Elsewhere : No Locati on: [facility] So urce: EHR Chron ic: N Practic e ID: 0001 Bill able Time: 01:00:00 PM Estela Padgett [facility] 13:51:13 Atrophic vaginiti s 89150004 Completed 201304/10/2021 Atrophic vaginitis , PM;Record ed Elsewhere : No Locati on: [facility] So urce: EHR Chron ic: N Practic e ID: 0001 Bill able Time: 10:30:00 AM Estela Padgett [facility] 13:51:[address] Concept Completed 201504/10/2021 Encntr for general adult medical exam w/o abnormal findings; Recorded Elsewhere : No Locati on: [facility] So urce: EHR Chron ic: N Practic e ID: 0001 Bill able Time: 10:30:00 AM Estela Padgett [facility] 13:51:21 Pain of breast 12695233 Completed 201404/10/2021 Breast painful;R ecorded Elsewhere : No Locati on: [facility] So urce: EHR Chron ic: N Practic e ID: 0001 Bill able Time: 11:15:00 AM Estela Padgett [facility] 13:51:16 Abdomina l bloating 091350717 Completed 201804/10/2021 Abdominal distensio n (gaseous) ;Recorded Elsewhere : No Locati on: [facility] So urce: EHR Chron ic: N Practic e ID: 0001 Bill able Time: 01:00:00 PM Estela Padgett [facility] 13:51:07 Menopaus e present [id number] Completed 201604/10/2021 Symptoms such as flushing, sleepless ness, headache, lack of concentra tion, associate d with natural (age-rela marleen) menopause ;Recorded Elsewhere : No Locati on: [facility] So urce: EHR Chron ic: N Practic e ID: 0001 Bill able Time: 01:00:00 PM Estela Padgett [facility] 13:51:14 Speciali zed medical examinat ion Completed 201304/10/2021 Routine gynecolog ical examinati on;Practi ce ID: 0001 [facility] 13:51:24 Problem Notes None recorded. Procedures Surgical History Date Name Laterality Status Provider Name and Address Organization Details Recorded Time 04/05/20 21 Date of Last Mammogram completed [facility] 04/10/2021 13:51:43 06/16/18 86 Total Hysterectomy completed [facility] 04/10/2021 13:55:53 06/16/18 83 Tubal Ligation completed [facility] 04/10/2021 13:55:43 Appendectomy completed [facility] 04/10/2021 13:55:31 procedure on ankle completed [facility] 04/10/2021 13:56:23 Imaging Results Imaging Date Name Status LastModified by Organiz ation Details LastModified Time 04/05/2021 MAMMO, screening, bilateral completed layran Information not available 04/10/2021 10:52:28 Procedure Notes None recorded. Medical Equipment None Reported. Allergies Allergen ID Allergen Name Allergen Category Reaction Reaction Severity Criticality Documentation Date Start Date Code Code System Note Provider Name and Address Organization Details Recorded Time 9908 amlodipin e medicatio n anaphylax is Not available Not available 06/02/2020 35618 RxNorm React ion: Anaph ylaxi s; Comme nt: [facility]at [facility]; Not Available [facility] 0 14:14:45 Medications Name Sig Start Date Stop Date Status Note LastModified by Organization Details LastModified Time Xanax 0.5 mg tablet take 1 tablet by oral route 3 times every day 2013 active Prescrib ed Elsewher e: No Locat ion: [facility] M odify By: [email or web address] trick En counter DateTime : 12/02/19 14 10:30:00 AM Not Available Not Available Not Available paroxetin e 10 mg tablet take 1 tablet by oral route every day 12/15 completed Prescrib ed Elsewher e: No Locat ion: [facility] odify By: amnereida ramirezunter DateTime : 05/28/20 17 01:00:00 PM Not Available Not Available Not Available Inderal LA 160 mg capsule,e xtended release take 1 capsule by oral route every day 12/15 completed Prescrib ed Elsewher e: Yes Loca tion: [facility] odify By: amnereida Crow ncounter DateTime : 04/30/20 16 10:30:00 AM Not Available Not Available Not Available citalopra m 20 mg tablet take 1 tablet by oral route every day 01/25 completed Prescrib ed Elsewher e: No Locat ion: [facility] odify By: [email or web address] nettie En counter DateTime : 12/02/19 14 10:30:00 AM Not Available Not Available Not Available Wellbutri n 75 mg tablet take 1 tablet by oral route 3 times every day 04/30 completed Prescrib ed Elsewher e: Yes Loca tion: [facility] odify By: carolynn Crow ncounter DateTime : 12/02/19 14 10:30:00 AM Not Available Not Available Not Available omeprazol e 20 mg capsule,d elayed release take 1 capsule by oral route every day before a meal active Prescrib ed Elsewher e: Yes Loca tion: [facility] odify By: carolynn Crow ncounter DateTime : 04/30/20 16 10:30:00 AM Not Available Not Available Not Available propranol ol 20 mg tablet take 1 tablet by oral route 3 times every day active Prescrib ed Elsewher e: Yes Loca tion: [facility] odify By: carolynn Crow ncounter DateTime : 05/28/20 17 01:00:00 PM Not Available Not Available Not Available Cymbalta 30 mg capsule,d elayed release take 1 capsule by oral route 2 times every day 04/30 completed Prescrib ed Elsewher e: Yes Loca tion: [facility] odify By: carolynn ramirezuntnevin DateTime : 01/26/20 11:15:00 AM Not Available Not Available Not Available Propanedi ol 100 % liquid 04/30 completed Prescrib ed Elsewher e: Yes Loca tion: [facility] odify By: carolynn Crow ncounter DateTime : 01/26/20 11:15:00 AM Not Available Not Available Not Available Vitals Date Recorded Body height Body mass index (BMI) Body weight Provider Name and Address Organization Details Last Updated DateTime 04/12/2021 153.67 cm 25.4 kg/m2 47322.19 g Estela Padgett [facility] 04/12/2021 15:38:46 Date Recorded Systolic blood pressure Diastolic blood pressure Provider Name and Address Organization Details Last Updated DateTime 04/12/2021 133 mm[Hg] 82 mm[Hg] Nissa Solitario, [facility]- [address], [place], [address], [facility] 04/12/2021 15:57:05 Social History Question Answer Notes LastModified by Organizat ion Details LastModified Time Tobacco Smoking Status Former Smoker Estela Padgett [facility] 04/10/2021 13:55:11 What Is Your Level Of Alcohol Consumption? Occasional Information not available 04/10/2021 Are You Blind Or Do You Have Difficulty Seeing? No Information not available 04/10/2021 What Is Your Level Of Caffeine Consumption? Occasional Information not available 04/10/2021 Are You Deaf Or Do You Have Serious Difficulty Hearing? No Information not available 04/10/2021 What Type Of Diet Are You Following? REGULAR Information not available 04/10/2021 Do You Use Your Seat Belt Or Car Seat Routinely? Yes Information not available 04/10/2021 Do You Have Smoke And Carbon Monoxide Detectors In Your Home? Yes Information not available 04/10/2021 Do You Feel Stressed (tense, Restless, Nervous, Or Anxious, Or Unable To Sleep At Night)? [id number] Information not available 04/10/2021 Do You Use Any Illicit Or Recreational Drugs? No Information not available 04/10/2021 Do You Use Sunscreen Routinely? Yes Information not available 04/10/2021 Sex: Unknown Functional Status Question Answer Note LastModified by Organizat ion Details LastModified Time Are you able to walk? YESWOREST Information not available 04/10/2021 What is your exercise level? Occasional Information not available 04/10/2021 Mental Status None recorded. Family History Relationship Description Onset Age of this Age Resolved Age Notes LastModified by Organization Details LastModified Time Sister Malignant tumor of breast Not available 2020 13:54:13 Sister Malignant tumor of cervix Not available 2020 13:54:21 Medical History Condition Response Osteoporosis Y Gynecological History Statement/Question Response Date of Last Pap Smear Current Control Method Hysterectom y Date of Last Mammogram 04/05/2021 Obstetrics History GPAL:G 1 P 0 0 0 1 Type Value Living 1 Total 1 Past Encounters Encounter ID Performer Location Encounter Start Date Encounter Closed Date Diagnosis/Indication Diagnosis SNOMED-CT Code Diagnosis ICD10 Code Diagnosis Note [id number] Nissa Solitario [facility] [address] [address] 04/12/2021 15:23:55 04/12/2021 16:02:27 Mastodynia of bilateral breasts [id number] 6570943 N64.4 Z80.3 N63.20 Today we agreed on referral to breast specialist due to concern over recent diag mammo with US findings; her family history of both sisters having breast cancer.She has had genetic cancer screen which was negative (done at [facility]). Agrees to further evaluation by a specialist in breast care.Will await further imaging until sees the specialist as they will likely want to use their own facility. Time spent in visit is a total of 15 mins with at least 50% of visit consisting of counseling and review of plan of care.Addit ional precaution willi measures were taken to minimize potential exposure to the Covid-19 virus during this patient s visit, including available hand cleaning team member upon arrive, temperatur e check and being asked a series of screening questions. All staff wore face coverings during this encounter, as well as provided additional cleaning and sanitizing of all surfaces, including countertop s, pens, chairs, door handles, light switches, etc, prior to and following the patient s visit. Health Concerns Section Related Observation LastModified by Organization Detai ls LastModified Time None Recorded Concern Status LastModified by Organization Details LastModified Time None Recorded Advance Directives Directive None Recorded Payers Encounter Date Sequence Insurance Name Policy Number Policy Figueroa Covered Member ID Figueroa Member ID Guarantor Name 04/12/2021 2 [facility] (MEDICARE SUPPLEMENT) Mariposa Zane [id number] Mariposa Degroot 04/12/2021 1 [place] Mariposa Salty Zane [id number] Mariposa Degroot Notes Date Note Type Note Provider Name and Address Organization Details Recorded Time 04/12/2021 text/html Here today for breast exam left breast.Feels nodules are more swollen & sore.Feels the nipple on this side looks more inverted than usual.Family hx breast cancer x 2 sisters.Has had breast cysts in the past 2007 that were benign.Completed breast imaging 04/02/2021 BIRAD-2 with benign appearing findings (per pt). Nissa Solitario, [facility]- [address], [place], [address], [facility] 04/12/2021 16:00:35 OBGyn Episode Ob Episode Information Episode Created Date Number of Fetuses Patient Bloodtype Patient rh Status Prepregnancy Weight lbs Domestic Partner Domestic Partner Phone Father Name Cleater Status 04/10/20 21 1 CLOSED Fetus Data First Name Last Name Admitted to NICU Weight (g) Sex Living Outcome Pediatric Complications Fetus ID Race Codes Race Delivery Type 3515.33 8 M Full Term [id number] Vaginal Delivery Phillip Calculation Initial Phillip Date Initial Exam Date Initial Exam Provider Initial Ultrasound Date Last Menstrual Period Date Ultra Sound Weeks Gestation 0 Eighteen To Twenty Week Phillip Update Ultra Sound Date Fundal Height At Umbil Quickening Date Ultra Sound Latest Weeks Gestation Final Phillip Confirmed By Final Phillip Confirmed Date Final Phillip Date Ultra Sound Latest Days Gestation 0 0 Menstrual History Last Menstrual Date Menses Monthly On Bcp Conception Prior Menses Frequency Hcg Plus Date Menarche Onset Age Delivery Information Delivery Date Delivery Type Labor Anesthesia Weeks Gestation Incision Type Labor Labor Length Hrs Delivered By Post Complications Tubal Sterilization Discharge Date Comments 5 Discharge Information Feeding Method Contraceptive Method Maternal HG B and HCT Levels
--- OUTSIDE RECORDS SUMMARY | 2024-08-27 14:55 | XMS_ITS | Encounter Summary ---
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
== END 2024-08-27 14:50 | disposition home or self-care (01) ==
LOC: ANHIMG 14:51
PROVIDERS: PCP Family Medicine; Visit Provider Obstetrics & Gynecology
DX: Z12.31 Encounter for screening mammogram for malignant neoplasm of breast (principal)
CPT/HCPCS: 77063; 77067